=== PATIENT | male | born 1925 | race Caucasian/White ===

== ENCOUNTER 2016-09-28 14:21 | Inpatient (IN) | payer MEDICARE ==
[~2016-09-28] VITALS: Ht 170.2 cm; Wt 58.6 kg
[2016-09-28] VITALS (7 sets, daily range): BP systolic 158–242; BP diastolic 65–110; PULSE 52–64; RESP 18; TEMP 97.7–97.8; O2SAT 96–100
[~2016-09-28 14:21] MED LIST: ATOR10 PO; LEVA500T33 PO; METO50CR OR; METR-1 PO; ZOLP10TA3 OR
[2016-09-28] MEDS ORDERED: LIPI10TA PO (14:35)
[2016-09-28] MEDS ORDERED: ZOLP10TA3 PO (14:35)
[2016-09-28] MEDS ORDERED: METO50TA11 PO (14:35)
[2016-09-28 14:56] LABS: AUTOMATED NEUTROPHIL # 8.1 TH/MM3 (1.8-7.7); BASOPHIL # 0.1 TH/MM3 (0-0.2); BASOPHIL % 0.5 % (0.0-2.0); EOSINOPHIL # 0.4 TH/MM3 (0-0.4); EOSINOPHIL % 3.2 % (0.0-4.0); HEMATOCRIT 40.2 % (39.0-51.0); HEMO FLAGS DIFF FINAL; LYMPHOCYTE # 1.6 TH/MM3 (1.0-4.8); MEAN CELL VOLUME 90.4 FL (80.0-100.0); MEAN CORPUSCULAR HEMOGLOBIN 30.6 PG (27.0-34.0); MEAN CORPUSCULAR HGB CONC 33.8 % (32.0-36.0); MONO % 10.4 % (0.0-8.0); NEUT % 71.9 % (16.0-70.0); PLATELET COUNT 217 TH/MM3 (150-450); RED BLOOD COUNT 4.45 MIL/MM3 (4.50-5.90); RED CELL DISTRIBUTION WIDTH 14.5 % (11.6-17.2); WHITE BLOOD COUNT 11.2 TH/MM3 (4.0-11.0)
[2016-09-28 15:18] LABS: ALKALINE PHOSPHATASE 102 U/L (45-117); APTT (PATIENT) 27.1 SEC (24.3-30.1); PROTHROMBIN TIME - PATIENT 11.4 SEC (9.8-11.6); TOTAL BILIRUBIN ADULT 0.7 MG/DL (0.2-1.0)
[2016-09-28 15:21] LABS: ALT (GPT) 22 U/L (12-78); ANION GAP 7 MEQ/L (5-15); AST (GOT) 24 U/L (15-37); BICARBONATE 27.2 MEQ/L (21.0-32.0); BLOOD UREA NITROGEN 14 MG/DL (7-18); CHLORIDE 108 MEQ/L (98-107); GLOMERULAR FILTRATION RATE 67 ML/MIN (>89); SODIUM (NA) 142 MEQ/L (136-145)
[2016-09-28 15:22] LABS: POTASSIUM 4.2 MEQ/L (3.5-5.1)
[2016-09-28] MEDS ORDERED: IOHEXOL 350 MG/ML 10 ML VIAL (for RAD DIAG) IV ONE (16:03)
--- NOTE | 2016-09-28 16:12 | RADRPT ---
EXAM DATE/TIME: 09/28/2016 15:44 [place] COMPARISON: CT ABDOMEN & PELVIS W CONTRAST, October 01, 2011, 14:00. INDICATIONS : Rectal bleeding today. IV CONTRAST: 85 cc Omnipaque 350 (iohexol) IV ORAL CONTRAST: No oral contrast ingested. RADIATION DOSE: 9.96 CTDIvol (mGy) MEDICAL HISTORY : Hypertension. SURGICAL HISTORY : CABG colon surgery ENCOUNTER: Initial ACUITY: 1 day PAIN SCALE: 0/10 LOCATION: Bilateral abdomen TECHNIQUE: Volumetric scanning of the abdomen and pelvis was performed. Using automated exposure control and ad justment of the mA and/or kV according to patient size, radiation dose was kept as low as reasonably achievable to obtain optimal diagnostic quality images. FINDINGS: LOWER LUNGS: The visualized lower lungs are clear. LIVER: Homogeneous density without lesion. There is no dilation of the biliary tree. There are multiple scarlett cified gallstones. SPLEEN: Normal size without lesion. PANCREAS: Within normal limits. KIDNEYS: Normal in size and shape. There is no mass, stone or hydronephrosis. ADRENAL GLANDS: Within normal limits. VASCULAR: There is no aortic aneurysm. Atherosclerotic changes. BOWEL/MESENTERY: Extensive diverticulosis of the colon but greatest in the descending and sigmoid colon. Mild degree o f diverticulitis cannot be excluded in the sigmoid colon.. There is no free intraperitoneal air or f luid. Moderate hiatal hernia ABDOMINAL WALL: Within normal limits. RETROPERITONEUM: There is no lymphadenopathy. BLADDER: No wall thickening or mass. REPRODUCTIVE: Enlarged prostate. INGUINAL: There is no lymphadenopathy or hernia. MUSCULOSKELETAL: Within normal limits for patient age. CONCLUSION: 1. Extensive diverticulosis, a mild degree of diverticulitis cannot be excluded in the sigmoid colon. 2. Cholelithiasis. 3. Hiatal hernia. 4. Enlarged prostate gland. Markus Mix MD on September 28, 2016 at 16:08 Board Certified Radiologist. This report was verified electronically.
[2016-09-28 16:35] LABS: BLOOD, URINE NEG (NEG); COMMENT (UR) CULT NOT INDICATED; CULTURE IF INDICATED CULT NOT INDICATED; GLUCOSE,URINE NEG (NEG); KETONE, URINE NEG (NEG); MUCUS URINE FEW /lpf (OCC); NITRITE,URINE NEG (NEG); URINE COLOR LIGHT-YELLOW (YELLW/STRAW)
[2016-09-28] MEDS ORDERED: CIPROFLOXACIN 400 MG PREMIX 200 ML IV ONE (17:30)
[2016-09-28] MEDS ORDERED: metroNIDAZOLE 500 MG INJ 100 ML IV ONE (17:30)
[2016-09-28] MEDS ORDERED: ENALAPRILAT 1.25 MG/ML VIAL IV PUSH PRN (17:45)
[2016-09-28] MEDS ORDERED: SODIUM CHLORIDE 0.9% FLUSH 5 ML FLUSH FLUSH PRN (17:45)
[2016-09-28] MEDS ORDERED: ACETAMINOPHEN 325 MG TAB PO PRN (17:45)
[2016-09-28] MEDS ORDERED: NALOXONE HCL 0.4 MG/ML AMP IV PRN (17:45)
[2016-09-28] MEDS ORDERED: ONDANSETRON HCL 4 MG/2 ML VIAL IVP PRN (17:45)
--- NOTE | 2016-09-28 18:00 | HHI.HP ---
HPI Service [facility] Primary Care Physician Non-Staff Admission Diagnosis GI bleed Diagnoses: Chief Complaint: Rectal bleeding Travel History International Travel<30 Days: No Contact w/Intl Traveler <30 Da: No Traveled to Known Affected Are: No History of Present Illness This is a pleasant 89-year-old male patient with past medical history which includes hypertension, hyperlipidemia, diverticulitis status post colon resection, CAD status post CABG. Patient reports he was in his normal state of health until this morning when he has bowel movement he noticed a large amount of bright red blood present. Patient had a second episode where he passed large amounts of bright red blood therefore he proceeded to the emergency department for further evaluation and treatment. Patient reports he is continuous to have bright red blood per rectum. Patient denies abdominal pain or cramping. Patient denies nausea or vomiting. Patient also denies feeling dizzy lightheaded or short of breath. Patient reports his appetite food intake and weight have been about the same. Patient reports she has not experienced any chest pain fevers chills. Review of Systems Except as stated in HPI: all other systems reviewed are Neg Past Family Social History Past Medical History hypertension, hyperlipidemia, diverticulitis status post colon resection, CAD status post CABG. Past Surgical History Coronary artery bypass graft, colon resection, skin cancer removed from right side of abdominal wall Reported Medications Zolpidem (Zolpidem Tartrate) 10 Mg Tab 10 Mg PO HS PRN Metoprolol Succinate ER 24 HR (Metoprolol Succinate) 50 Mg Tab 50 Mg PO BID Lipitor (Atorvastatin Calcium) 10 Mg Tab 10 Mg PO HS Allergies: Coded Allergies: Lopressor (Verified Allergy, Intermediate, 09/28/16) Active Ordered Medications Current Medications Medications (Trade) Dose Ordered Sig/Rasheeda Route Start Time Stop Time Status Last Admin Ciprofloxacin/ Dextrose 200 ml @ 200 mls/hr ONCE ONCE IV 09/28/16 17:30 09/28/16 18:29 (Flagyl 500 Mg Inj) 100 ml @ 100 mls/hr ONCE ONCE IV 09/28/16 17:30 09/28/16 18:29 Family History Patient denies family medical history, reports his family and denies of old age , denies diabetes hypertension hyperlipidemia CAD or cancer Social History Patient quit smoking 40+ years ago Reports of having occasional beer with dinner not on a daily basis Physical Exam Vital Signs Vital Signs Date Time Temp Pulse Resp B/P Pulse Ox O2 Delivery O2 Flow Rate FiO2 09/28/16 17:06 60 18 242/95 97 Room Air 09/28/16 14:39 54 18 214/86 98 Room Air 09/28/16 14:35 18 98 Room Air 09/28/16 14:35 18 09/28/16 14:24 97.7 54 18 200/110 98 Physical Exam GENERAL: This is a well-nourished, well-developed patient 89-year-old male patient, in no apparent distress. SKIN: No rashes, ecchymoses or lesions. Cool and dry. EYES: Pupils equal round and reactive. Extraocular motions intact. No scleral icterus. No injection or drainage. Conjunctiva pale CARDIOVASCULAR: Regular rate and rhythm without murmurs, gallops, or rubs. RESPIRATORY: Clear to auscultation. Breath sounds equal bilaterally. No wheezes , rales, or rhonchi. GASTROINTESTINAL: Abdomen soft, non-tender, nondistended. No guarding. MUSCULOSKELETAL: Extremities without clubbing, cyanosis, or edema. No joint tenderness, effusion, or edema noted. No calf tenderness. Negative Homans sign bilaterally. NEUROLOGICAL: Awake and alert. No focal deficits appreciated. Motor and sensory grossly within normal limits. 4-5 out of 5 muscle strength in all muscle groups. Normal speech. Laboratory Laboratory Tests Test 09/28/16 09/28/16 14:30 15:55 White Blood Count 11.2 Red Blood Count 4.45 Hemoglobin 13.6 Hematocrit 40.2 Mean Corpuscular Volume 90.4 Mean Corpuscular Hemoglobin 30.6 Mean Corpuscular Hemoglobin 33.8 Concent Red Cell Distribution Width 14.5 Platelet Count 217 Mean Platelet Volume 9.8 Neutrophils (%) (Auto) 71.9 Lymphocytes (%) (Auto) 14.0 Monocytes (%) (Auto) 10.4 Eosinophils (%) (Auto) 3.2 Basophils (%) (Auto) 0.5 Neutrophils # (Auto) 8.1 Lymphocytes # (Auto) 1.6 Monocytes # (Auto) 1.2 Eosinophils # (Auto) 0.4 Basophils # (Auto) 0.1 CBC Comment DIFF FINAL Differential Comment Prothrombin Time 11.4 Prothromb Time International 1.0 Ratio Activated Partial 27.1 Thromboplast Time Sodium Level 142 Potassium Level 4.2 Chloride Level 108 Carbon Dioxide Level 27.2 Anion Gap 7 Blood Urea Nitrogen 14 Creatinine 1.05 Estimat Glomerular Filtration 67 Rate Random Glucose 105 Calcium Level 8.8 Total Bilirubin 0.7 Aspartate Amino Transf 24 (AST/SGOT) Alanine Aminotransferase 22 (ALT/SGPT) Alkaline Phosphatase 102 Total Protein 6.7 Albumin 3.6 Lipase 52 Urine Color LIGHT-YELLOW Urine Turbidity CLEAR Urine pH 6.0 Urine Specific [place] 1.005 Urine Protein NEG Urine Glucose (UA) NEG Urine Ketones NEG Urine Occult Blood NEG Urine Nitrite NEG Urine Bilirubin NEG Urine Urobilinogen LESS THAN 2.0 Urine Leukocyte Esterase TRACE Urine RBC 2 Urine WBC 2 Urine Mucus FEW Microscopic Urinalysis Comment CULT NOT INDICATED Result Diagram: 09/28/16 1430 09/28/16 1430 Imaging Last Impressions Abdomen/Pelvis CT 09/28/16 1426 Signed Impressions: Service Date/Time: Wednesday, September 28, 2016 15:44 - CONCLUSION: 1. Extensive diverticulosis, a mild degree of diverticulitis cannot be excluded in the sigmoid colon. 2. Cholelithiasis. 3. Hiatal hernia. 4. Enlarged prostate gland. Markus Mix MD Assessment and Plan Problem List: (1) GI bleeding ICD Code: K92.2 Status: Acute (2) Diverticulitis ICD Code: K57.92 Status: Acute (3) HTN (hypertension) ICD Code: I10 Status: Acute (4) CAD (coronary artery disease) ICD Code: I25.10 Status: Chronic Assessment and Plan This is a pleasant 89-year-old male patient with past medical history which includes hypertension, hyperlipidemia, diverticulitis status post colon resection, CAD status post CABG. Patient reports he was in his normal state of health until this morning when he has bowel movement he noticed a large amount of bright red blood present. Patient had a second episode where he passed large amounts of bright red blood therefore he proceeded to the emergency department for further evaluation and treatment. Diverticulitis with GI bleed Continue Cipro and Flagyl IV CT reviewed by myself as well as Dr. Greenfield and reveals: Extensive diverticulosis, a mild degree of diverticulitis cannot be excluded in the sigmoid colon. 2. Cholelithiasis. 3. Hiatal hernia. 4. Enlarged prostate gland Hemoglobin stable at this 0.13 0.6, will monitor H&H every 6 Clear liquid diet at this time, nothing by mouth after midnight Consult gastroenterology Protonix IV daily Hypertension with bradycardia Patient normally takes metoprolol at home will decrease metoprolol at this point in light of bradycardia Vasotec as needed If BP remains elevated will consider adding norvasc Hyperlipidemia continue home Lipitor CAD status post coronary artery bypass graft hold aspirin in light of GI bleed Continue Lipitor DVT prophylaxis with SCDs avoid chemical DVT prophylaxis in light of GI bleeding Discussed with ER provider, nursing and patient Written by Collette Slater, acting as scribe for Dr. Greenfield on 09/28/16 at 17:58. Discussed Condition With ER physician and the patient. Attending Statement patient was seen and examined today. 89 y/o male with history of diverticulosis who presented to ER with GI bleed. no abdominal pain, chest pain, dizziness or sob. will monitor H/H closely and transfuse with PRBC as needed. GI will be consulted. rest of assessment and plan as noted above. Collette Slater Sep 28, 2016 18:00 Aguila Greenfield MD Sep 28, 2016 18:04
--- NOTE | 2016-09-28 19:03 | PD ---
HPI Chief Complaint: GI Complaint Time Seen by Provider: 14:26 Travel History International Travel<30 days: No Contact w/Intl Traveler<30days: No Traveled to known affect area: No History of Present Illness HPI Patient is an 89-year-old male presents emergency department with painless rectal bleeding. Patient states it started today he's had blood and normal 7 bowel movement today which are 4-5 bowel movements. Patient states no clots has been having a fair amount of dark red stools. Patient states happened to him once in the past he was diagnosed with diverticulitis. Patient denies any hypovolemic symptoms denies any dizziness or weakness. His colonoscopy many years, has no primary care physician as of yet. PFSH Past Medical History Hx Anticoagulant Therapy: Yes Cardiovascular Problems: Yes High Cholesterol: Yes Diabetes: No Hypertension: Yes Tetanus Vaccination: Unknown Influenza Vaccination: Yes Past Surgical History Abdominal Surgery: Yes (COLON) Coronary Artery Bypass Graft: Yes Social History Alcohol Use: No Tobacco Use: No Substance Use: No Allergies-Medications (Allergen,Severity, Reaction): Coded Allergies: Lopressor (Verified Allergy, Intermediate, 09/28/16) Reported Meds & Prescriptions Reported Meds & Active Scripts Active Reported Zolpidem (Zolpidem Tartrate) 10 Mg Tab 10 Mg PO HS PRN Metoprolol Succinate ER 24 HR (Metoprolol Succinate) 50 Mg Tab 50 Mg PO BID Lipitor (Atorvastatin Calcium) 10 Mg Tab 10 Mg PO HS Review of Systems Except as stated in HPI: all other systems reviewed are Neg Physical Exam Narrative GENERAL: Well-developed well-nourished no apparent distress, appears quite healthy for 89-year-old male. SKIN: Warm and dry. HEAD: Atraumatic. Normocephalic. EYES: Pupils equal and round. No scleral icterus. No injection or drainage. ENT: No nasal bleeding or discharge. Mucous membranes pink and moist. NECK: Trachea midline. No JVD. CARDIOVASCULAR: Regular rate and rhythm. No murmur appreciated. RESPIRATORY: No accessory muscle use. Clear to auscultation. Breath sounds equal bilaterally. GASTROINTESTINAL: Abdomen soft, non-tender, nondistended. Hepatic and splenic margins not palpable. Rectal exam shows gross blood, no active bleeding just steady oozing. No hemorrhoids no mass. Prostate normal. MUSCULOSKELETAL: No obvious deformities. No clubbing. No cyanosis. No edema. NEUROLOGICAL: Awake and alert. No obvious cranial nerve deficits. Motor grossly within normal limits. Normal speech. PSYCHIATRIC: Appropriate mood and affect; insight and judgment normal. Data Data Last Documented VS Vital Signs Date Time Temp Pulse Resp B/P Pulse Ox O2 Delivery O2 Flow Rate FiO2 09/28/16 17:06 60 18 242/95 97 Room Air 09/28/16 14:24 97.7 Orders Complete Blood Count With Diff (09/28/16 14:26) Comprehensive Metabolic Panel (09/28/16 14:26) Lipase (09/28/16 14:26) Prothrombin Time / Inr (Pt) (09/28/16 14:26) Act Partial Throm Time (Ptt) (09/28/16 14:26) Urinalysis - C+S If Indicated (09/28/16 14:26) Ct Abd/Pel W Iv Contrast(Rout) (09/28/16 14:26) Iv Access Insert/Monitor (09/28/16 14:26) Ecg Monitoring (09/28/16 14:26) Oximetry (09/28/16 14:26) Electrocardiogram (09/28/16 14:26) Iohexol 350 Inj (Omnipaque 350 Inj) (09/28/16 16:03) Admit Order (Ed Use Only) (09/28/16 ) Ciprofloxacin 400 Mg Premix (Cipro 400 M (09/28/16 17:30) Metronidazole 500 Mg Inj (Flagyl 500 Mg (09/28/16 17:30) Labs Laboratory Tests Test 09/28/16 09/28/16 14:30 15:55 White Blood Count 11.2 TH/MM3 Red Blood Count 4.45 MIL/MM3 Hemoglobin 13.6 GM/DL Hematocrit 40.2 % Mean Corpuscular Volume 90.4 FL Mean Corpuscular Hemoglobin 30.6 PG Mean Corpuscular Hemoglobin 33.8 % Concent Red Cell Distribution Width 14.5 % Platelet Count 217 TH/MM3 Mean Platelet Volume 9.8 FL Neutrophils (%) (Auto) 71.9 % Lymphocytes (%) (Auto) 14.0 % Monocytes (%) (Auto) 10.4 % Eosinophils (%) (Auto) 3.2 % Basophils (%) (Auto) 0.5 % Neutrophils # (Auto) 8.1 TH/MM3 Lymphocytes # (Auto) 1.6 TH/MM3 Monocytes # (Auto) 1.2 TH/MM3 Eosinophils # (Auto) 0.4 TH/MM3 Basophils # (Auto) 0.1 TH/MM3 CBC Comment DIFF FINAL Differential Comment Prothrombin Time 11.4 SEC Prothromb Time International 1.0 RATIO Ratio Activated Partial 27.1 SEC Thromboplast Time Sodium Level 142 MEQ/L Potassium Level 4.2 MEQ/L Chloride Level 108 MEQ/L Carbon Dioxide Level 27.2 MEQ/L Anion Gap 7 MEQ/L Blood Urea Nitrogen 14 MG/DL Creatinine 1.05 MG/DL Estimat Glomerular Filtration 67 ML/MIN Rate Random Glucose 105 MG/DL Calcium Level 8.8 MG/DL Total Bilirubin 0.7 MG/DL Aspartate Amino Transf 24 U/L (AST/SGOT) Alanine Aminotransferase 22 U/L (ALT/SGPT) Alkaline Phosphatase 102 U/L Total Protein 6.7 GM/DL Albumin 3.6 GM/DL Lipase 52 U/L Urine Color LIGHT-YELLOW Urine Turbidity CLEAR Urine pH 6.0 Urine Specific [place] 1.005 Urine Protein NEG mg/dL Urine Glucose (UA) NEG mg/dL Urine Ketones NEG mg/dL Urine Occult Blood NEG Urine Nitrite NEG Urine Bilirubin NEG Urine Urobilinogen LESS THAN 2.0 MG/DL Urine Leukocyte Esterase TRACE Urine RBC 2 /hpf Urine WBC 2 /hpf Urine Mucus FEW /lpf Microscopic Urinalysis Comment CULT NOT INDICATED MDM Medical Decision Making Medical Screen Exam Complete: Yes Emergency Medical Condition: Yes Differential Diagnosis GI bleeding, anemia, diverticulitis, colitis, rectal mass. Narrative Course Patient roomed in the emergency Department, vital signs as well as blood work is quite reassuring. Patient has hemoglobin of 13. CAT scan shows diverticulosis with mild diverticulitis. Last 24 hours Impressions Abdomen/Pelvis CT 09/28/16 1426 Signed Impressions: Service Date/Time: Wednesday, September 28, 2016 15:44 - CONCLUSION: 1. Extensive diverticulosis, a mild degree of diverticulitis cannot be excluded in the sigmoid colon. 2. Cholelithiasis. 3. Hiatal hernia. 4. Enlarged prostate gland. Markus Mix MD He has had no pain in the emergency department, will be started on Cipro and Flagyl given his age as well as his level bleeding he will be placed in observation status with Dr. Greenfield Diagnosis Primary Impression: GI bleeding Qualified Code: K92.2 - Gastrointestinal hemorrhage, unspecified gastrointestinal hemorrhage type Disposition: 01 DISCHARGE HOME Condition: Stable Jose Pierce MD Sep 28, 2016 19:03
[2016-09-28] MEDS: PANTOPRAZOLE SODIUM 40 MG VIAL IV PUSH SCH (19:06)
[2016-09-28] MEDS: METOPROLOL SUCCINATE 25 MG EXTENDED RELEASE TAB PO SCH (20:15)
[2016-09-28] MEDS: SODIUM CHLOR 0.9% 1000 ML INJ 1,000 ML IV SCH (20:15)
[2016-09-28] MEDS: SODIUM CHLORIDE 0.9% FLUSH 5 ML FLUSH FLUSH SCH (20:40)
[2016-09-28 20:42] LABS: HEMATOCRIT 37.8 % (39.0-51.0)
[2016-09-29] VITALS (8 sets, daily range): BP systolic 142–189; BP diastolic 64–74; PULSE 57–67; RESP 17–20; TEMP 97.3–98.3; O2SAT 94–99
[2016-09-29] MEDS: metroNIDAZOLE 500 MG INJ 100 ML IV SCH ×3 (00:48→18:01)
[2016-09-29 02:05] LABS: AUTOMATED NEUTROPHIL # 9.3 TH/MM3 (1.8-7.7); BASOPHIL # 0.1 TH/MM3 (0-0.2); BASOPHIL % 0.5 % (0.0-2.0); EOSINOPHIL # 0.1 TH/MM3 (0-0.4); EOSINOPHIL % 0.5 % (0.0-4.0); HEMO FLAGS DIFF FINAL; LYMPH % 11.6 % (9.0-44.0); LYMPHOCYTE # 1.3 TH/MM3 (1.0-4.8); MEAN CELL VOLUME 89.2 FL (80.0-100.0); MEAN CORPUSCULAR HGB CONC 34.7 % (32.0-36.0); NEUT % 80.4 % (16.0-70.0); PLATELET COUNT 187 TH/MM3 (150-450); RED BLOOD COUNT 3.26 MIL/MM3 (4.50-5.90); RED CELL DISTRIBUTION WIDTH 14.1 % (11.6-17.2); WHITE BLOOD COUNT 11.5 TH/MM3 (4.0-11.0)
[2016-09-29 02:24] LABS: BICARBONATE 28.1 MEQ/L (21.0-32.0); POTASSIUM 4.3 MEQ/L (3.5-5.1)
[2016-09-29] MEDS: SODIUM CHLOR 0.9% 1000 ML INJ 1,000 ML IV SCH ×2 (06:13→20:40)
[2016-09-29] MEDS: CIPROFLOXACIN 400 MG PREMIX 200 ML IV SCH ×2 (06:13→16:36)
[2016-09-29] MEDS: SODIUM CHLORIDE 0.9% FLUSH 5 ML FLUSH FLUSH SCH ×2 (09:00→20:42)
[2016-09-29] MEDS: METOPROLOL SUCCINATE 25 MG EXTENDED RELEASE TAB PO SCH ×2 (09:00→20:41)
--- NOTE | 2016-09-29 10:03 | HHI.PR ---
Subjective Remarks resting comfortably. denies abdominal pain. no further rectal bleed over night. no dizziness, chest pain or sob. Objective Vitals Vital Signs Date Time Temp Pulse Resp B/P Pulse Ox O2 Delivery O2 Flow Rate FiO2 09/29/16 08:30 98 21 09/29/16 08:00 98.3 63 20 159/70 99 09/29/16 04:00 97.9 63 17 142/66 97 09/29/16 00:00 98.0 60 17 167/74 97 09/28/16 23:15 Room Air 09/28/16 22:15 97.8 52 18 158/66 100 09/28/16 20:31 64 18 158/65 96 Room Air 09/28/16 18:21 97 21 09/28/16 17:06 60 18 242/95 97 Room Air 09/28/16 14:39 54 18 214/86 98 Room Air 09/28/16 14:35 18 98 Room Air 09/28/16 14:35 18 09/28/16 14:24 97.7 54 18 200/110 98 I/O 09/28/16 09/28/16 09/28/16 09/29/16 09/29/16 09/29/16 07:00 15:00 23:00 07:00 15:00 23:00 Intake Total 514 ml Balance 514 ml Intake Oral 0 ml IV Total 514 ml # Voids 1 # Bowel Movements 1 Result Diagram: 09/29/16 0153 09/29/16 0153 Imaging Last Impressions Abdomen/Pelvis CT 09/28/16 1426 Signed Impressions: Service Date/Time: Wednesday, September 28, 2016 15:44 - CONCLUSION: 1. Extensive diverticulosis, a mild degree of diverticulitis cannot be excluded in the sigmoid colon. 2. Cholelithiasis. 3. Hiatal hernia. 4. Enlarged prostate gland. Markus Mix MD Objective Remarks GENERAL: in no apparent distress. CARDIOVASCULAR: Regular rate and regular rhythm without murmurs, gallops, or rubs. RESPIRATORY: Clear to auscultation. Breath sounds equal bilaterally. No wheezes , rales, or rhonchi. GASTROINTESTINAL: Abdomen soft, non-tender, nondistended. Normal, active bowel sounds MUSCULOSKELETAL: Extremities without clubbing, cyanosis, or edema. NEURO: Alert & Oriented x4 to person, place, time, situation. Moves all ext x4 Procedures none Medications and IVs Current Medications Iohexol 85 ml 85 ml STK-MED ONCE IV Last administered on 09/28/16 16:03; Start 09/28/16 at 16:03; Stop 09/28/16 at 16:04; Status DC Ciprofloxacin/ Dextrose 200 ml @ 200 mls/hr ONCE ONCE IV Last administered on 09/28/16 17:51; Start 09/28/16 at 17:30; Stop 09/28/16 at 18:29; Status DC Metronidazole 100 ml @ 100 mls/hr ONCE ONCE IV Last administered on 19:06; Start 09/28/16 at 17:30; Stop 09/28/16 at 18:29; Status DC Sodium Chloride (NS 1000 ml Inj) 1,000 ml @ 75 mls/hr [id number] IV Last administered on 09/29/16 06:13; Start 09/28/16 at 18:00 IV Flush (NS Flush) 2 ml UNSCH PRN FLUSH FLUSH AFTER USING IV ACCESS; Start at 17:45 IV Flush (NS Flush) 2 ml BID FLUSH ; Start 09/28/16 at 21:00 Acetaminophen (Tylenol) 650 mg Q4H PRN PO TEMP > 100.4; Start 09/28/16 at 17:45 Ondansetron HCl (Zofran Inj) 4 mg Q6H PRN IVP NAUSEA OR VOMITING; Start at 17:45 Naloxone HCl (Narcan Inj) 0.4 mg UNSCH PRN IV SEE LABEL COMMENTS; Start at 17:45 Pantoprazole Sodium 40 mg 40 mg Q24H IV PUSH Last administered on 09/28/16 19: 06; Start 09/28/16 at 18:00 Ciprofloxacin/ Dextrose 200 ml @ 200 mls/hr Q12H IV Last administered on 06:13; Start 09/29/16 at 06:00 Metronidazole (Flagyl 500 Mg Inj) 100 ml @ 100 mls/hr Q8H IV Last administered on 09/29/16 00:48; Start 09/29/16 at 02:00 Enalaprilat (Vasotec Inj) 1.25 mg Q6H PRN IV PUSH SBP>180, DBP>95; Start 09/28 at 17:45 Metoprolol Succinate (Toprol Xl) 25 mg BID PO Last administered on 09/29/16t 09 :00; Start 09/28/16 at 21:00 A/P Assessment and Plan Diverticulitis with GI bleed Continue Cipro and Flagyl IV will monitor H&H every 6 nothing by mouth for now Consulted gastroenterology Protonix IV daily anemia- acute due to GI bleed- continue to monitor H/H and transfuse as needed.GI consult as noted above. Hypertension with bradycardia- overall better decreased the home dose of metoprolol at this point in light of bradycardia Vasotec as needed If BP remains elevated will consider adding norvasc Hyperlipidemia continue home Lipitor CAD status post coronary artery bypass graft hold aspirin in light of GI bleed Continue Lipitor DVT prophylaxis with SCDs avoid chemical DVT prophylaxis in light of GI bleeding Discharge Planning awaiting GI evaluation and work-up. Aguila Greenfield MD Sep 29, 2016 10:03
[2016-09-29 10:27] LABS: HEMATOCRIT 29.5 % (39.0-51.0)
--- NOTE | 2016-09-29 11:43 | PD.CONS ---
HPI History of Present Illness This is a 89 year old male patient with a history of a bowel resection for diverticulitis who came to the emergency room for evaluation of GI bleeding. He reports that the other night he consumed a large amount of nuts. He reports that his told him that he should not do this given his history of diverticulitis, but the patient said he has not had any issues with this in many years. He woke up yesterday morning and had 2 episodes of passing a large amount of bright red blood mixed within his stool and therefore came to the emergency room for further evaluation. There were no aggravating or alleviating factors. He denies any associated fevers, chills, nausea, vomiting, abdominal pain. He denies any decreased appetite or weight loss. He reports that he had diverticulitis 20 years ago which required a colon resection. His last colonoscopy was about 15-20 years ago. He reports that he takes a baby aspirin but does not take any other blood thinners. Abdomen/Pelvis CT (09/28/16) revealed 1. Extensive diverticulosis, a mild degree of diverticulitis cannot be excluded in the sigmoid colon. 2. Cholelithiasis. 3. Hiatal hernia. 4. Enlarged prostate gland. (Irma Fair) PFSH Past Medical History Hypertension Hyperlipidemia Hx diverticulitis, status post colon resection about 20 years ago CAD status post CABG. Past Surgical History Coronary artery bypass graft Colon resection secondary to diverticulitis Skin cancer removed from right side of abdominal wall (Irma Fair ) Coded Allergies: Lopressor (Verified Allergy, Intermediate, 09/28/16) Medications Allergies Coded Allergies Type Severity Reaction Last Updated Verified Lopressor Allergy Intermediate 09/28/16 Yes Active Scripts Medications Dose Route/Sig Days Date Category Zolpidem (Zolpidem Tartrate) 10 Mg Tab 10 Mg PO HS PRN 09/28/16 Reported Metoprolol Succinate ER 24 HR (Metoprolol Succinate) 50 Mg Tab 50 Mg PO BID 09/28/16 Reported Lipitor (Atorvastatin Calcium) 10 Mg Tab 10 Mg PO HS 09/28/16 Reported Family History No family hx of esophageal, gastric, or colorectal cancer Social History Patient quit smoking 40+ years ago Reports of having occasional beer with dinner not on a daily basis (Irma Fair) Review of Systems Constitutional: COMPLAINS OF: Fatigue, DENIES: Fever, Weight loss, Chills, Change in appetite Respiratory: DENIES: Cough, Shortness of breath Cardiovascular: DENIES: Chest pain Gastrointestinal: COMPLAINS OF: Bloody stools, DENIES: Abdominal pain, Black stools, Constipation, Diarrhea, Nausea, Vomiting, Anorexia, Swelling of Abdomen , Heartburn, Hematemesis Integumentary: DENIES: Abnormal pigmentation, Rash Hematologic/lymphatic: DENIES: Bruising Neurologic: DENIES: Headache Psychiatric: DENIES: Confusion (Irma Fair) GI Exam Vitals I&O Vital Signs Date Time Temp Pulse Resp B/P Pulse Ox O2 Delivery O2 Flow Rate FiO2 09/29/16 08:45 Room Air 09/29/16 08:30 98 21 09/29/16 08:00 98.3 63 20 159/70 99 09/29/16 04:00 97.9 63 17 142/66 97 09/29/16 00:00 98.0 60 17 167/74 97 09/28/16 23:15 Room Air 09/28/16 22:15 97.8 52 18 158/66 100 09/28/16 20:31 64 18 158/65 96 Room Air 09/28/16 18:21 97 21 09/28/16 17:06 60 18 242/95 97 Room Air 09/28/16 14:39 54 18 214/86 98 Room Air 09/28/16 14:35 18 98 Room Air 09/28/16 14:35 18 09/28/16 14:24 97.7 54 18 200/110 98 I/O 09/28/16 09/28/16 09/28/16 09/29/16 09/29/16 09/29/16 07:00 15:00 23:00 07:00 15:00 23:00 Intake Total 514 ml Balance 514 ml Intake Oral 0 ml IV Total 514 ml # Voids 1 # Bowel Movements 1 Imaging Last Impressions Abdomen/Pelvis CT 09/28/16 1426 Signed Impressions: Service Date/Time: Wednesday, September 28, 2016 15:44 - CONCLUSION: 1. Extensive diverticulosis, a mild degree of diverticulitis cannot be excluded in the sigmoid colon. 2. Cholelithiasis. 3. Hiatal hernia. 4. Enlarged prostate gland. Markus Mix MD Laboratory Test 09/28/16 09/28/16 09/28/16 09/29/16 14:30 15:55 20:30 01:53 White Blood Count 11.2 TH/MM3 11.5 TH/MM3 Red Blood Count 4.45 MIL/MM3 3.26 MIL/MM3 Hemoglobin 13.6 GM/DL 12.5 GM/DL 10.1 GM/DL Hematocrit 40.2 % 37.8 % 29.0 % Mean Corpuscular Volume 90.4 FL 89.2 FL Mean Corpuscular Hemoglobin 30.6 PG 31.0 PG Mean Corpuscular Hemoglobin 33.8 % 34.7 % Concent Red Cell Distribution Width 14.5 % 14.1 % Platelet Count 217 TH/MM3 187 TH/MM3 Mean Platelet Volume 9.8 FL 9.6 FL Neutrophils (%) (Auto) 71.9 % 80.4 % Lymphocytes (%) (Auto) 14.0 % 11.6 % Monocytes (%) (Auto) 10.4 % 7.0 % Eosinophils (%) (Auto) 3.2 % 0.5 % Basophils (%) (Auto) 0.5 % 0.5 % Neutrophils # (Auto) 8.1 TH/MM3 9.3 TH/MM3 Lymphocytes # (Auto) 1.6 TH/MM3 1.3 TH/MM3 Monocytes # (Auto) 1.2 TH/MM3 0.8 TH/MM3 Eosinophils # (Auto) 0.4 TH/MM3 0.1 TH/MM3 Basophils # (Auto) 0.1 TH/MM3 0.1 TH/MM3 CBC Comment DIFF FINAL DIFF FINAL Differential Comment Prothrombin Time 11.4 SEC Prothromb Time International 1.0 RATIO Ratio Activated Partial 27.1 SEC Thromboplast Time Sodium Level 142 MEQ/L 141 MEQ/L Potassium Level 4.2 MEQ/L 4.3 MEQ/L Chloride Level 108 MEQ/L 106 MEQ/L Carbon Dioxide Level 27.2 MEQ/L 28.1 MEQ/L Anion Gap 7 MEQ/L 7 MEQ/L Blood Urea Nitrogen 14 MG/DL 15 MG/DL Creatinine 1.05 MG/DL 0.98 MG/DL Estimat Glomerular Filtration 67 ML/MIN 72 ML/MIN Rate Random Glucose 105 MG/DL 119 MG/DL Calcium Level 8.8 MG/DL 8.7 MG/DL Total Bilirubin 0.7 MG/DL Aspartate Amino Transf 24 U/L (AST/SGOT) Alanine Aminotransferase 22 U/L (ALT/SGPT) Alkaline Phosphatase 102 U/L Total Protein 6.7 GM/DL Albumin 3.6 GM/DL Lipase 52 U/L Urine Color LIGHT-YELLOW Urine Turbidity CLEAR Urine pH 6.0 Urine Specific [place] 1.005 Urine Protein NEG mg/dL Urine Glucose (UA) NEG mg/dL Urine Ketones NEG mg/dL Urine Occult Blood NEG Urine Nitrite NEG Urine Bilirubin NEG Urine Urobilinogen LESS THAN 2.0 MG/DL Urine Leukocyte Esterase TRACE Urine RBC 2 /hpf Urine WBC 2 /hpf Urine Mucus FEW /lpf Microscopic Urinalysis Comment CULT NOT INDICATED Test 09/29/16 09:45 Hemoglobin 10.2 GM/DL Hematocrit 29.5 % Physical Examination HEENT: Normocephalic; atraumatic; no jaundice. Throat is clear. NECK: Neck is supple, no JVD, no lymphadenopathy. CHEST: CTA CARDIAC: RRR ABDOMEN: Soft, nondistended, nontender; no hepatosplenomegaly; bowel sounds are present in all four quadrants. EXTREMITIES: No clubbing, cyanosis, or edema. SKIN: Normal; no rash; no jaundice. HEAD HOLDER: No focal deficits; alert and oriented times three. (Irma Fair) Assessment and Plan Plan ASSESSMENT: - GIB, Lower. 2 episodes of a large amount of bright red blood in stool yesterday am. Hgb went from 14.6-->13.6--->12.5---> 10.1-->10.2. Currently 10.2, 29.5. No active bleeding at this time. Last colonoscopy 15- 20 years ago. - Anemia, acute blood loss. 10.2/29.5. - Abnormal imaging on CT with extensive diverticulosis, possible mild diverticulitis. Abdomen/Pelvis CT (09/28/16) revealed 1. Extensive diverticulosis, a mild degree of diverticulitis cannot be excluded in the sigmoid colon. 2. Cholelithiasis. 3. Hiatal hernia. 4. Enlarged prostate gland. WBC 11.5. Pt had diverticulitis 20 years ago, requiring colon resection. Cipro/Flagyl. - CAD, HTN, Hyperlipidemia per primary PLAN: - Plan for colonoscopy in am - Obtain consents - Clear liquids - NPO after MN - Golytely prep - Cont. Cipro/Flagyl - Cont. PPI - Monitor HH - Transfuse as necessary - Supportive care - Further recommendations to follow based on results of above - Pt seen and examined by Dr. Marcelino and myself and this note is written on his behalf (Irma Fair) Physician Comments Patient seen and examined Agree with above Continue with current supportive care Monitor labs Colonoscopy tomorrow (Rian Marcelino MD) Irma Fair Sep 29, 2016 11:43 Rian Marcelino MD Sep 30, 2016 00:08
--- NOTE | 2016-09-29 12:26 | EKG ---
Date Performed: 09/28/2016 Time Performed: 14:42:35 PTAGE: 89 years EKG: Rhythm appears to be junctional rhythm at 51 bpm RIGHT BUNDLE BRANCH BLOCK ABNORMAL ECG NO PREVIOUS TRACING DOCTOR: Ryan Rivera Interpretating Date/Time 09/29/2016 12:26:04
[2016-09-29 13:43] LABS: HEMATOCRIT 29.3 % (39.0-51.0)
[2016-09-29] MEDS ORDERED: PEG (High)/E-LYTE SOLN 4000 ML BTL PO ONE (16:00)
[2016-09-29] MEDS: PANTOPRAZOLE SODIUM 40 MG VIAL IV PUSH SCH (18:01)
[2016-09-30] VITALS (10 sets, daily range): BP systolic 140–197; BP diastolic 65–76; PULSE 62–82; RESP 16–20; TEMP 97.1–98.1; O2SAT 95–100
[2016-09-30] MEDS: metroNIDAZOLE 500 MG INJ 100 ML IV SCH ×3 (02:26→16:32)
[2016-09-30] MEDS: CIPROFLOXACIN 400 MG PREMIX 200 ML IV SCH ×2 (05:12→16:32)
[2016-09-30] MEDS ORDERED: SODIUM CHLORID 0.9% 500 ML IV SCH (06:45)
[2016-09-30] MEDS ORDERED: INSULIN HUMAN REGULAR 1,000 UNITS/10 ML VIAL SQ PRN (06:45)
[2016-09-30] MEDS: SODIUM CHLORIDE 0.9% FLUSH 5 ML FLUSH FLUSH SCH ×2 (07:38→21:20)
[2016-09-30] MEDS: LACTATED RINGER'S 1000 ML IV SCH (07:45)
[2016-09-30] MEDS: SODIUM CHLOR 0.9% 1000 ML INJ 1,000 ML IV SCH (07:59)
[2016-09-30] MEDS: METOPROLOL SUCCINATE 25 MG EXTENDED RELEASE TAB PO SCH ×2 (08:03→21:20)
[2016-09-30 09:33] LABS: AUTOMATED NEUTROPHIL # 7.1 TH/MM3 (1.8-7.7); BASOPHIL % 0.4 % (0.0-2.0); EOSINOPHIL # 0.1 TH/MM3 (0-0.4); EOSINOPHIL % 1.5 % (0.0-4.0); HEMATOCRIT 24.8 % (39.0-51.0); HEMO FLAGS DIFF FINAL; LYMPH % 8.2 % (9.0-44.0); LYMPHOCYTE # 0.8 TH/MM3 (1.0-4.8); MEAN CELL VOLUME 90.6 FL (80.0-100.0); MEAN CORPUSCULAR HGB CONC 34.2 % (32.0-36.0); MONO % 13.3 % (0.0-8.0); NEUT % 76.6 % (16.0-70.0); PLATELET COUNT 158 TH/MM3 (150-450); RED BLOOD COUNT 2.74 MIL/MM3 (4.50-5.90); RED CELL DISTRIBUTION WIDTH 14.5 % (11.6-17.2); WHITE BLOOD COUNT 9.2 TH/MM3 (4.0-11.0)
[2016-09-30] MEDS ORDERED: PROPOFOL 200 MG/20 ML AMP IV ONE ×2 (12:00→12:16)
--- NOTE | 2016-09-30 12:34 | PD.PROCEDR ---
GI Procedure REFERRING PHYSICIAN Skyler PROCEDURE PERFORMED Colonoscopy INDICATION FOR PROCEDURE Lower GI bleed PROCEDURE: The procedure, risks and benefits were discussed with Mr. Logan and informed consent was obtained. Anesthesia sedated him with Diprivan. He was placed in the left lateral decubitus position. Colonoscopy: The Pentax videoscope was introduced through the rectum and advanced to the anastomosis between the terminal ileum and transverse colon. Retroflexion was performed in the rectum. Colonic prep was good FINDINGS: As the scope was slowly withdrawn colonic mucosa was carefully inspected the patient was noted to have prior right hemicolectomy colonic mucosa was unremarkable and within normal limits the whole way through the patient was noted to have diverticulosis scattered throughout the colon but severe in the sigmoid retroflexion in rectal examination were unremarkable ESTIMATED BLOOD LOSS: None SPECIMENS REMOVED: None COMPLICATIONS: None IMPRESSION: Diverticulosis History of right hemicolectomy PLAN: No active bleeding Chew food well and avoid nuts seeds and popcorn Advance diet and monitor labs if all is stable by tomorrow May discharge from a GI standpoint Rian Marcelino MD Sep 30, 2016 12:34
--- NOTE | 2016-09-30 13:26 | HHI.PR ---
Subjective Remarks had colonoscopy earlier. resting comfortably with no distress. no chest pain, abdominal pain, sob or dizziness. family at the bedside. d/w the RN. Objective Vitals Vital Signs Date Time Temp Pulse Resp B/P Pulse Ox O2 Delivery O2 Flow Rate FiO2 09/30/16 12:40 64 16 126/57 99 09/30/16 12:35 66 16 100/52 100 09/30/16 12:30 98.1 73 16 100/42 100 09/30/16 11:00 97.4 73 20 172/74 99 09/30/16 08:00 Room Air 09/30/16 08:00 97.4 73 20 172/74 99 09/30/16 07:38 98 21 09/30/16 04:00 97.1 65 20 140/67 99 09/30/16 00:00 97.5 82 20 159/67 99 09/29/16 22:18 94 21 09/29/16 20:00 97.3 67 20 189/73 94 09/29/16 19:30 Room Air 09/29/16 16:00 97.6 66 20 168/69 99 I/O 09/29/16 09/29/16 09/29/16 09/30/16 09/30/16 09/30/16 07:00 15:00 23:00 07:00 15:00 23:00 Intake Total 514 ml 929 ml 300 ml 400 ml Output Total 200 ml Balance 514 ml 729 ml 300 ml 400 ml Intake Oral 0 ml 360 ml 300 ml IV Total 514 ml 569 ml 400 ml Output Urine Total 200 ml # Voids 1 2 0 1 # Bowel Movements 1 0 0 1 Result Diagram: 09/30/16 0854 09/29/16 0153 Imaging Last Impressions Abdomen/Pelvis CT 09/28/16 1426 Signed Impressions: Service Date/Time: Wednesday, September 28, 2016 15:44 - CONCLUSION: 1. Extensive diverticulosis, a mild degree of diverticulitis cannot be excluded in the sigmoid colon. 2. Cholelithiasis. 3. Hiatal hernia. 4. Enlarged prostate gland. Markus Mix MD Objective Remarks GENERAL: in no apparent distress. CARDIOVASCULAR: Regular rate and regular rhythm without murmurs, gallops, or rubs. RESPIRATORY: Clear to auscultation. Breath sounds equal bilaterally. No wheezes , rales, or rhonchi. GASTROINTESTINAL: Abdomen soft, non-tender, nondistended. Normal, active bowel sounds MUSCULOSKELETAL: Extremities without clubbing, cyanosis, or edema. NEURO: Alert & Oriented x4 to person, place, time, situation. Moves all ext x4 Procedures none Medications and IVs Current Medications Iohexol 85 ml 85 ml STK-MED ONCE IV Last administered on 09/28/16 16:03; Start 09/28/16 at 16:03; Stop 09/28/16 at 16:04; Status DC Ciprofloxacin/ Dextrose 200 ml @ 200 mls/hr ONCE ONCE IV Last administered on 09/28/16 17:51; Start 09/28/16 at 17:30; Stop 09/28/16 at 18:29; Status DC Metronidazole 100 ml @ 100 mls/hr ONCE ONCE IV Last administered on 19:06; Start 09/28/16 at 17:30; Stop 09/28/16 at 18:29; Status DC Sodium Chloride (NS 1000 ml Inj) 1,000 ml @ 75 mls/hr [id number] IV Last administered on 09/30/16 07:59; Start 09/28/16 at 18:00 IV Flush (NS Flush) 2 ml UNSCH PRN FLUSH FLUSH AFTER USING IV ACCESS; Start at 17:45 IV Flush (NS Flush) 2 ml BID FLUSH ; Start 09/28/16 at 21:00 Acetaminophen (Tylenol) 650 mg Q4H PRN PO TEMP > 100.4; Start 09/28/16 at 17:45 Ondansetron HCl (Zofran Inj) 4 mg Q6H PRN IVP NAUSEA OR VOMITING; Start at 17:45 Naloxone HCl (Narcan Inj) 0.4 mg UNSCH PRN IV SEE LABEL COMMENTS; Start at 17:45 Pantoprazole Sodium 40 mg 40 mg Q24H IV PUSH Last administered on 09/29/16 18: 01; Start 09/28/16 at 18:00 Ciprofloxacin/ Dextrose 200 ml @ 200 mls/hr Q12H IV Last administered on 05:12; Start 09/29/16 at 06:00 Metronidazole (Flagyl 500 Mg Inj) 100 ml @ 100 mls/hr Q8H IV Last administered on 09/30/16 08:02; Start 09/29/16 at 02:00 Enalaprilat (Vasotec Inj) 1.25 mg Q6H PRN IV PUSH SBP>180, DBP>95; Start 09/28 at 17:45 Metoprolol Succinate (Toprol Xl) 25 mg BID PO Last administered on 09/30/16 08 :03; Start 09/28/16 at 21:00 Polyethylene Glycol/ Electrolytes 4000 ml 4,000 ml ONCE ONCE PO Last administered on 09/29/16 16:01; Start 09/29/16 at 16:00; Stop 09/29/16 at 16:01 ; Status DC Lactated Ringer's 1,000 ml @ 30 mls/hr Q24H IV Last administered on 09/30/16 07:45; Start 09/30/16 at 06:45 Sodium Chloride (NS 500 ml Inj) 500 ml @ 30 mls/hr [id number] IV ; Start 09/30/16 at 06:45; Stop 10/01/16 at 06:44 Insulin Human Regular (NovoLIN R INJ) See Protocol Table ... UNSCH X1 PRN SQ SEE PROTOCOL; Start 09/30/16 at 06:45; Stop 10/01/16 at 06:44 Propofol (Diprivan 200 Mg/20 ml Inj) 1 mg STK-MED ONCE IV ; Start 09/30/16 at 12:16; Stop 09/30/16 at 12:26; Status DC A/P Assessment and Plan Diverticulitis with GI bleed Continue Cipro and Flagyl IV will monitor H&H s/p colonoscopy GI following anemia- acute due to GI bleed- continue to monitor H/H and transfuse as needed.GI consult as noted above. Hypertension with bradycardia- overall better decreased the home dose of metoprolol at this point in light of bradycardia Vasotec as needed If BP remains elevated will consider adding norvasc Hyperlipidemia continue home Lipitor CAD status post coronary artery bypass graft hold aspirin in light of GI bleed Continue Lipitor DVT prophylaxis with SCDs avoid chemical DVT prophylaxis in light of GI bleeding Discharge Planning possible dc home in am if stable and ok with GI. Aguila Greenfield MD Sep 30, 2016 13:26
[2016-09-30] MEDS: PANTOPRAZOLE SODIUM 40 MG VIAL IV PUSH SCH (16:32)
[2016-10-01] MEDS: metroNIDAZOLE 500 MG INJ 100 ML IV SCH ×2 (03:43→09:20)
[2016-10-01 04:46] VITALS: BP 155/70; PULSE 67; RESP 16; TEMP 98.4; O2SAT 97
[2016-10-01] MEDS: CIPROFLOXACIN 400 MG PREMIX 200 ML IV SCH (05:20)
[2016-10-01] MEDS: LACTATED RINGER'S 1000 ML IV SCH (06:45)
[2016-10-01 07:29] LABS: HEMATOCRIT 23.9 % (39.0-51.0); MEAN CELL VOLUME 90.1 FL (80.0-100.0); MEAN CORPUSCULAR HEMOGLOBIN 31.1 PG (27.0-34.0); MEAN CORPUSCULAR HGB CONC 34.5 % (32.0-36.0); PLATELET COUNT 157 TH/MM3 (150-450); RED BLOOD COUNT 2.65 MIL/MM3 (4.50-5.90); REVIEW FLAG FINAL; WHITE BLOOD COUNT 8.5 TH/MM3 (4.0-11.0)
[2016-10-01 08:00] VITALS: BP 170/73; PULSE 68; RESP 22; TEMP 98.1; O2SAT 97
[2016-10-01] MEDS: SODIUM CHLORIDE 0.9% FLUSH 5 ML FLUSH FLUSH SCH (09:19)
[2016-10-01] MEDS: METOPROLOL SUCCINATE 25 MG EXTENDED RELEASE TAB PO SCH (09:19)
--- NOTE | 2016-10-01 10:08 | HHI.PR ---
Subjective Remarks sitting on the chair with no distress. denies abdominal pain, nausea or vomiting. had some dark stools but with no active GI bleed. Objective Vitals Vital Signs Date Time Temp Pulse Resp B/P Pulse Ox O2 Delivery O2 Flow Rate FiO2 10/01/16 08:00 98.1 68 22 170/73 97 10/01/16 04:46 98.4 67 16 155/70 97 09/30/16 23:45 98.1 77 16 151/65 99 09/30/16 21:05 98.0 77 16 154/66 95 09/30/16 20:15 Room Air 09/30/16 16:00 97.5 67 20 151/67 100 09/30/16 14:46 146/67 09/30/16 12:40 64 16 126/57 99 09/30/16 12:35 66 16 100/52 100 09/30/16 12:30 98.1 73 16 100/42 100 09/30/16 12:00 97.2 62 20 197/76 95 09/30/16 11:00 97.4 73 20 172/74 99 I/O 09/30/16 09/30/16 09/30/16 10/01/16 10/01/16 10/01/16 07:00 15:00 23:00 07:00 15:00 23:00 Intake Total 2582 ml 360 ml 0 ml Output Total 175 ml Balance 2407 ml 360 ml 0 ml Intake Oral 240 ml 360 ml 0 ml IV Total 2342 ml Output Urine Total 175 ml # Voids 1 2 1 2 # Bowel Movements 1 1 1 0 Result Diagram: 10/01/16 0620 09/29/16 0153 Imaging Last Impressions Abdomen/Pelvis CT 09/28/16 1426 Signed Impressions: Service Date/Time: Wednesday, September 28, 2016 15:44 - CONCLUSION: 1. Extensive diverticulosis, a mild degree of diverticulitis cannot be excluded in the sigmoid colon. 2. Cholelithiasis. 3. Hiatal hernia. 4. Enlarged prostate gland. Markus Mix MD Objective Remarks GENERAL: in no apparent distress. CARDIOVASCULAR: Regular rate and regular rhythm without murmurs, gallops, or rubs. RESPIRATORY: Clear to auscultation. Breath sounds equal bilaterally. No wheezes , rales, or rhonchi. GASTROINTESTINAL: Abdomen soft, non-tender, nondistended. Normal, active bowel sounds MUSCULOSKELETAL: Extremities without clubbing, cyanosis, or edema. NEURO: Alert & Oriented x4 to person, place, time, situation. Moves all ext x4 Procedures colonoscopy. Medications and IVs Current Medications Iohexol 85 ml 85 ml STK-MED ONCE IV Last administered on 09/28/16 16:03; Start 09/28/16 at 16:03; Stop 09/28/16 at 16:04; Status DC Ciprofloxacin/ Dextrose 200 ml @ 200 mls/hr ONCE ONCE IV Last administered on 09/28/16 17:51; Start 09/28/16 at 17:30; Stop 09/28/16 at 18:29; Status DC Metronidazole 100 ml @ 100 mls/hr ONCE ONCE IV Last administered on 19:06; Start 09/28/16 at 17:30; Stop 09/28/16 at 18:29; Status DC Sodium Chloride (NS 1000 ml Inj) 1,000 ml @ 75 mls/hr [id number] IV Last administered on 09/30/16 07:59; Start 09/28/16 at 18:00; Status Hold IV Flush (NS Flush) 2 ml UNSCH PRN FLUSH FLUSH AFTER USING IV ACCESS; Start at 17:45 IV Flush (NS Flush) 2 ml BID FLUSH Last administered on 10/01/16 09:19; Start 09/28/16 at 21:00 Acetaminophen (Tylenol) 650 mg Q4H PRN PO TEMP > 100.4; Start 09/28/16 at 17:45 Ondansetron HCl (Zofran Inj) 4 mg Q6H PRN IVP NAUSEA OR VOMITING; Start at 17:45 Naloxone HCl (Narcan Inj) 0.4 mg UNSCH PRN IV SEE LABEL COMMENTS; Start at 17:45 Pantoprazole Sodium 40 mg 40 mg Q24H IV PUSH Last administered on 09/30/16 16: 32; Start 09/28/16 at 18:00 Ciprofloxacin/ Dextrose 200 ml @ 200 mls/hr Q12H IV Last administered on 05:20; Start 09/29/16 at 06:00 Metronidazole (Flagyl 500 Mg Inj) 100 ml @ 100 mls/hr Q8H IV Last administered on 10/01/16 09:20; Start 09/29/16 at 02:00 Enalaprilat (Vasotec Inj) 1.25 mg Q6H PRN IV PUSH SBP>180, DBP>95 Last administered on 09/30/16 13:31; Start 09/28/16 at 17:45 Metoprolol Succinate (Toprol Xl) 25 mg BID PO Last administered on 10/01/16 09: 19; Start 09/28/16 at 21:00 Polyethylene Glycol/ Electrolytes 4000 ml 4,000 ml ONCE ONCE PO Last administered on 09/29/16 16:01; Start 09/29/16 at 16:00; Stop 09/29/16 at 16:01 ; Status DC Lactated Ringer's 1,000 ml @ 30 mls/hr Q24H IV Last administered on 09/30/16 07:45; Start 09/30/16 at 06:45 Sodium Chloride (NS 500 ml Inj) 500 ml @ 30 mls/hr [id number] IV ; Start 09/30/16 at 06:45; Stop 10/01/16 at 06:44; Status DC Insulin Human Regular (NovoLIN R INJ) See Protocol Table ... UNSCH X1 PRN SQ SEE PROTOCOL; Start 09/30/16 at 06:45; Stop 10/01/16 at 06:44; Status DC Propofol (Diprivan 200 Mg/20 ml Inj) 1 mg STK-MED ONCE IV ; Start 09/30/16 at 12:16; Stop 09/30/16 at 12:26; Status DC A/P Assessment and Plan Diverticulosis with GI bleed will monitor H&H s/p colonoscopy GI following anemia- acute due to GI bleed- continue to monitor H/H and transfuse as needed.GI consult as noted above. Hypertension with bradycardia- overall better decreased the home dose of metoprolol at this point in light of bradycardia Vasotec as needed Hyperlipidemia continue home Lipitor CAD status post coronary artery bypass graft hold aspirin in light of GI bleed Continue Lipitor DVT prophylaxis with SCDs avoid chemical DVT prophylaxis in light of GI bleeding Discharge Planning possible dc home later this afternoon if H/H stable. see med list. f/u; pcp and GI upon discharge. d/w the patient. Minouei,Mohammadreza MD Oct 01, 2016 10:08
[2016-10-01] MEDS ORDERED: METO25TA6 PO (10:10)
--- NOTE | 2016-10-01 10:11 | HHI.DCPOC ---
Discharge Care Plan Diagnosis: (1) GI bleeding Your Health Problems Are: Bleeding Tendency Goals to Promote Your Health * To prevent worsening of your condition and complications * To maintain your health at the optimal level Directions to Meet Your Goals Take your medications as prescribed Follow your dietary instruction Follow activity as directed Keep your appointments as scheduled Take your immunizations and boosters as scheduled If your symptoms worsen call your PCP, if no PCP go to Urgent Care Center or Emergency Room Smoking is Dangerous to Your Health. Avoid second hand smoke Call the 24-hour hour crisis hotline for domestic abuse at Aguila Greenfield MD Oct 01, 2016 10:11
--- NOTE | 2016-10-01 10:13 | HHI.DS ---
Discharge Summary Admission Date Sep 29, 2016 at 10:07 Discharge Date: Oct 01, 2016 Admitting Diagnosis GI bleed (1) GI bleeding ICD Code: K92.2 Diagnosis: Principal (2) HTN (hypertension) ICD Code: I10 Diagnosis: Secondary (3) CAD (coronary artery disease) ICD Code: I25.10 Diagnosis: Secondary (4) Diverticulosis ICD Code: K57.90 Diagnosis: Principal Procedures colonoscopy. Brief History - From Admission This is a pleasant 89-year-old male patient with past medical history which includes hypertension, hyperlipidemia, diverticulitis status post colon resection, CAD status post CABG. Patient reports he was in his normal state of health until this morning when he has bowel movement he noticed a large amount of bright red blood present. Patient had a second episode where he passed large amounts of bright red blood therefore he proceeded to the emergency department for further evaluation and treatment. Patient reports he is continuous to have bright red blood per rectum. Patient denies abdominal pain or cramping. Patient denies nausea or vomiting. Patient also denies feeling dizzy lightheaded or short of breath. Patient reports his appetite food intake and weight have been about the same. Patient reports she has not experienced any chest pain fevers chills. CBC/BMP: 10/01/16 0620 09/29/16 0153 Significant Findings Laboratory Tests Test 09/28/16 09/28/16 09/28/16 09/29/16 14:30 15:55 20:30 01:53 White Blood Count 11.2 TH/MM3 11.5 TH/MM3 (4.0-11.0) (4.0-11.0) Red Blood Count 4.45 MIL/MM3 3.26 MIL/MM3 (4.50-5.90) (4.50-5.90) Neutrophils (%) (Auto) 71.9 % 80.4 % (16.0-70.0) (16.0-70.0) Monocytes (%) (Auto) 10.4 % (0.0-8.0) Neutrophils # (Auto) 8.1 TH/MM3 9.3 TH/MM3 (1.8-7.7) (1.8-7.7) Monocytes # (Auto) 1.2 TH/MM3 (0-0.9) Chloride Level 108 MEQ/L (98-107) Estimat Glomerular Filtration 67 ML/MIN (>89) 72 ML/MIN (>89) Rate Lipase 52 U/L (73-393) Urine Leukocyte Esterase TRACE (NEG) Urine Mucus FEW /lpf (OCC) Hemoglobin 12.5 GM/DL 10.1 GM/DL (13.0-17.0) (13.0-17.0) Hematocrit 37.8 % 29.0 % (39.0-51.0) (39.0-51.0) Random Glucose 119 MG/DL (74-106) Test 09/29/16 09/29/16 09/30/16 10/01/16 09:45 13:29 08:54 06:20 Hemoglobin 10.2 GM/DL 9.9 GM/DL 8.5 GM/DL 8.2 GM/DL (13.0-17.0) (13.0-17.0) (13.0-17.0) (13.0-17.0) Hematocrit 29.5 % 29.3 % 24.8 % 23.9 % (39.0-51.0) (39.0-51.0) (39.0-51.0) (39.0-51.0) Red Blood Count 2.74 MIL/MM3 2.65 MIL/MM3 (4.50-5.90) (4.50-5.90) Neutrophils (%) (Auto) 76.6 % (16.0-70.0) Lymphocytes (%) (Auto) 8.2 % (9.0-44.0) Monocytes (%) (Auto) 13.3 % (0.0-8.0) Lymphocytes # (Auto) 0.8 TH/MM3 (1.0-4.8) Monocytes # (Auto) 1.2 TH/MM3 (0-0.9) Imaging Last Impressions Abdomen/Pelvis CT 09/28/16 5414 Signed Impressions: Service Date/Time: Wednesday, September 28, 2016 15:44 - CONCLUSION: 1. Extensive diverticulosis, a mild degree of diverticulitis cannot be excluded in the sigmoid colon. 2. Cholelithiasis. 3. Hiatal hernia. 4. Enlarged prostate gland. Markus Mix MD PE at Discharge GENERAL: in no apparent distress. CARDIOVASCULAR: Regular rate and regular rhythm without murmurs, gallops, or rubs. RESPIRATORY: Clear to auscultation. Breath sounds equal bilaterally. No wheezes , rales, or rhonchi. GASTROINTESTINAL: Abdomen soft, non-tender, nondistended. Normal, active bowel sounds MUSCULOSKELETAL: Extremities without clubbing, cyanosis, or edema. NEURO: Alert & Oriented x4 to person, place, time, situation. Moves all ext x4 Hospital Course Diverticulosis with GI bleed will monitor H&H s/p colonoscopy GI following anemia- acute due to GI bleed- continue to monitor H/H and transfuse as needed.GI consult as noted above. 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 Activities you can perform: Regular-No Restrictions Follow up Referrals: Gastroenterology PCP Follow-up New Medications: Metoprolol Succinate ER 24 HR (Metoprolol Succinate ER 24 HR) 25 Mg Tab 25 MG PO BID hypertension Days 30 Ref 0 TAB Continued Medications: Atorvastatin (Lipitor) 10 Mg Tab 10 MG PO HS Cholesterol Management #30 Ref 0 TAB Zolpidem (Zolpidem) 10 Mg Tab 10 MG PO HS PRN INSOMNIA Ref 0 TAB Discontinued Medications: Metoprolol Succinate ER 24 HR (Metoprolol Succinate ER 24 HR) 50 Mg Tab 50 MG PO BID #30 Ref 0 TAB Aguila Greenfield MD Oct 01, 2016 10:13
[2016-10-01 10:40] VITALS: O2SAT 98
== END 2016-10-01 15:30 | disposition home or self-care (01) | DRG 378 ==
LOC: NEPA 14:21 → NEDA 17:31 → N04B 22:14 → OBSVTOIN 09-29 10:07
PROVIDERS: ADMIT Internal Medicine; ATTEND Internal Medicine
PROC: 0DJD8ZZ Inspection of Lower Intestinal Tract, Via Natural or Artificial Opening Endoscopic (ICD-10-PCS; principal; 2016-09-30 12:00)
DX: K57.31 Diverticulosis of large intestine without perforation or abscess with bleeding (principal); D62 Acute posthemorrhagic anemia; Z95.1 Presence of aortocoronary bypass graft; I25.810 Atherosclerosis of coronary artery bypass graft(s) without angina pectoris; I10 Essential (primary) hypertension; E78.5 Hyperlipidemia, unspecified; K44.9 Diaphragmatic hernia without obstruction or gangrene; K80.20 Calculus of gallbladder without cholecystitis without obstruction; N40.0 Benign prostatic hyperplasia without lower urinary tract symptoms; Z85.828 Personal history of other malignant neoplasm of skin; Z87.891 Personal history of nicotine dependence
CPT/HCPCS: 74177; 80048; 80053; 81001; 83690; 85014; 85018; 85025; 85027; 85610; 85730; 93005; C9113; G0378; J0744; J7030; J7120; Q9967